=== PATIENT | male | born 1980 | race African-American/Black ===

== ENCOUNTER 2016-09-21 17:35 | Emergency (ER) | payer OTHER ==
--- NOTE | ~2016-09-21 | MR18 ---
[facility] A Service of [facility] & [facility] RADIOLOGY TEXT RESULTS PATIENT: PEREZ CASAS LOCATION: [place] : [birth year] UNIT #: [id number] AGE: [address]: Lily Thurman MD SEX: M ORDER DR: [id number] [facility] [address] [place], [place] [address] [id number] MR#: [id number] Acc #: [id number] NAME: PEREZ CASAS : 1980 SEX: M STUDY DATE/TIME: 09/21/2016 16:07 UNIT: [facility] ROOM: STUDY DESCRIPTION: MR Brain Wo Contrast Attending Physician: Lily Thurman M.D. Ordering Physician: Lily Thurman M.D. Primary Care Physician: No Primary Care Physician MRI CENTER REPORT This report is preliminary unless electronic signature is present. EXAM Brain MRI without. INDICATION Sudden development of stuttering since 1:00 a.m., 09/21/2016. No trauma. No cancer. COMMENT MRI of the brain was performed without contrast using routine 1.5T imaging technique. There is no comparison. There is no evidence for a recent ischemic insult on the diffusion series. There is mild cerebellar tonsillar ectopia about 4 mm. There is no MRI evidence for intracranial hemorrhage. The ventricles are normal in size and configuration and the pulliam-white junction is well-maintained. There is no extraaxial fluid collection. The basilar cisterns are patent. There is some motion limitation of the study, best appreciated on the axial T2 series. The major intracranial flow voids are maintained. The mastoid air cells are clear. There is a mucous retention cyst or polyp in the right maxillary sinus. There is no sinus air-fluid level. There is no intracranial mass effect. An additional motion limiting blade sequence with T2-weighted imaging also obtained. There is probably an old right medial orbital wall fracture. IMPRESSION 1. No acute intracranial abnormality. Specifically, nothing to suggest a recent ischemic insult on the diffusion series. 2. Mild cerebellar tonsillar ectopia. STAT * RESULT [facility] A Service of [facility] & [facility] RADIOLOGY TEXT RESULTS PATIENT: MENCHACAPEREZ LOCATION: [place] : [birth year] UNIT #: [id number] AGE: [address]: Lily Thurman MD SEX: M ORDER DR: Dictated by... Isabel Clay M.D. THIS IS AN ELECTRONICALLY VERIFIED REPORT Isabel Clay M.D. at 09/21/2016 7:18 PM AXEL/leydi TD: 09/21/2016 16:48 JOB #: [id number] MRI CENTER REPORT Page 1 of 1 COPY
--- NOTE | ~2016-09-21 | CR219 ---
[facility] A Service of [facility] RADIOLOGY TEXT RESULTS PATIENT: PEREZ CASAS LOCATION: [place] : [birth year] UNIT #: [id number] AGE: [address]: Lily Thurman MD SEX: M ORDER DR: [id number] [facility] [address] [place], [place] [address] [id number] MR#: [id number] Acc #: [id number] NAME: PEREZ CASAS : 1980 SEX: M STUDY DATE/TIME: 09/21/2016 15:44 UNIT: [facility] ROOM: STUDY DESCRIPTION: CR Sacrum and Coccyx Min 2 Vie Attending Physician: Lily Thurman M.D. Ordering Physician: Lily Thurman M.D. Primary Care Physician: No Primary Care Physician MEDICAL IMAGING REPORT This report is preliminary unless electronic signature is present EXAM Sacrum and coccyx, AP and lateral. HISTORY Sacral injury 3 days ago. FINDINGS AP and lateral views of the sacrum and coccyx demonstrate satisfactory bone alignment. No fracture or abnormal sclerosis. Sacroiliac joints are normal and symmetric. IMPRESSION Negative. Dictated by... Rahul Moss M.D. THIS IS AN ELECTRONICALLY VERIFIED REPORT Rahul Moss M.D. at 09/21/2016 10:36 PM VENTURA/oliver TD: 09/21/2016 19:15 JOB #: [id number] MEDICAL IMAGING REPORT Page 1 of 1 COPY
[2016-09-21 15:28] LABS: BASOPHIL% 0.4 % (0-2.5); EOSINOPHIL# 0.1 X10e3 (0-0.7); EOSINOPHIL% 1.6 % (0.0-7.0); HEMATOCRIT 43.8 % (38.0-50.0); HEMOGLOBIN 14.5 gm/dL (13.0-16.0); LYMPHOCYTE% 23.5 % (17.0-45.0); MEAN CELL VOLUME 94.1 FL (83-96); MEAN CORPUSCULAR HEMOGLOBIN 31.2 PG (28-34); MEAN CORPUSCULAR HGB CONC 33.2 g/dL (30-36); MEAN PLATELET VOLUME 7.5 FL (6.5-11.5); MONOCYTE# 0.5 X10e3 (0-1.0); MONOCYTE% 6.4 % (3.0-12.0); NEUTROPHIL# 5.8 X10e3 (1.5-7.1); NEUTROPHIL% 68.1 % (40-75); PLATELET COUNT 249 X10e3 (140-420); RED BLOOD COUNT 4.66 X10e (3.90-5.60); RED CELL DISTRIBUTION WIDTH 13.2 % (11.0-15.5); WHITE BLOOD COUNT 8.5 X10e3 (4.0-10.5)
[2016-09-21 15:32] LABS: DIFF IND NO
[2016-09-21 16:04] LABS: BUN/CREATININE RATIO 17.77; CALCIUM SERUM 9.2 mg/dL (8.4-10.2); CREATININE SERUM 0.9 mg/dL (0.6-1.4); GLOM FILT RATE Estimated 127.8 mL/min (>60); POTASSIUM 3.9 mmol/L (3.5-5.1)
[~2016-09-21 17:35] MED LIST: BACTRIM DS TABL1 TAB PO; CLINDAMYCIN HC300 MG; CLINDAMYCIN HC300 MG PO; DOXYCYCLINE150 MG PO; FLEXERIL10 MG PO; IBUPROFEN PO; VICODIN PO
== END 2016-09-21 18:11 | disposition home or self-care (01) ==
LOC: CED 17:35
PROVIDERS: Emergency Medicine
DX: M53.3 Sacrococcygeal disorders, not elsewhere classified (principal); F98.5 Adult onset fluency disorder; J45.909 Unspecified asthma, uncomplicated; F17.210 Nicotine dependence, cigarettes, uncomplicated; Z98.890 Other specified postprocedural states
CPT/HCPCS: 70551; 72220; 80048; 85025; 99284